=== PATIENT | male | born 1975 | race African-American/Black ===

== ENCOUNTER 2018-07-24 22:24 | Emergency (ER) | payer BC ==
[~2018-07-24] VITALS: Ht 182.9 cm; Wt 106.0 kg
[~2018-07-24 22:24] MED LIST: NO MEDS
[2018-07-24] MEDS ORDERED: KEFLEX500 MG PO (22:32)
[2018-07-24 23:15] VITALS: BP 129/77
== END 2018-07-24 23:18 | disposition home or self-care (01) | DRG 605 ==
LOC: ED 22:24
DX: S61.012A Laceration without foreign body of left thumb without damage to nail, initial encounter (principal); W45.8XXA Other foreign body or object entering through skin, initial encounter

== ENCOUNTER 2020-05-26 09:12 | Emergency (ER) | payer BC ==
[~2020-05-26] VITALS: Ht 182.9 cm; Wt 105.8 kg
[~2020-05-26 09:12] MED LIST changes: +KEFLEX500 MG PO
[2020-05-26 09:35] VITALS: BP 126/76
== END 2020-05-26 10:22 | disposition home or self-care (01) | DRG 179 ==
LOC: ED 09:12
DX: U07.1 COVID-19 (principal); R50.9 Fever, unspecified; R52 Pain, unspecified